=== PATIENT | male | born 1990 | race Caucasian/White ===

== ENCOUNTER 2022-02-03 08:59 | Emergency (ER) | payer SELFPAY ==
[~2022-02-03] VITALS: Ht 182.9 cm; Wt 86.2 kg
--- NOTE | 2022-02-03 08:59 | NUR ---
PT AMBULATED TO [facility]ANIED BY [facility].
[2022-02-03 09:03] VITALS: BP 145/92
--- NOTE | 2022-02-03 09:16 | NUR ---
PATIENT BIB [facility]ICE DEPT. PATIENT EXAMINED BY DR. QUILES. PATIENT MEDICALLY CLEARED AND RELEASED IN CUSTODY IN STABLE CONDITION. ORIGINAL PRE-BOOK FORM GIVEN TO OFFICER RUEL.
[2022-02-03 09:20] VITALS: BP 145/92
--- NOTE | 2022-02-03 09:21 | NUR ---
Patient discharged with v/s stable. Written and verbal after care instructions given and explained. Patient verbalized understanding. Police with in custody. All questions addressed prior to discharge. Advised to follow up with [employer]D.
== END 2022-02-03 09:20 ==
LOC: MED 08:59
DX: Z00.00 Encounter for general adult medical examination without abnormal findings (principal); F17.200 Nicotine dependence, unspecified, uncomplicated; V89.2XXA Person injured in unspecified motor-vehicle accident, traffic, initial encounter; Y93.89 Activity, other specified; Y92.410 Unspecified street and highway as the place of occurrence of the external cause; Y99.8 Other external cause status
CPT/HCPCS: 99283